=== PATIENT | male | born 1990 | race Caucasian/White ===

== ENCOUNTER 2021-04-06 19:37 | Emergency (ER) | payer OTHER ==
[~2021-04-06] VITALS: Ht 175.3 cm; Wt 82.0 kg
[2021-04-06] MEDS ORDERED: IBUPROFEN 400MG TABLET PO ONE (22:30)
[2021-04-06 22:38] VITALS: BP 135/54
== END 2021-04-06 22:40 | disposition home or self-care (01) ==
LOC: ER 19:37
DX: S09.8XXA Other specified injuries of head, initial encounter (principal); M54.2 Cervicalgia; W22.8XXA Striking against or struck by other objects, initial encounter; Y93.89 Activity, other specified; Y92.89 Other specified places as the place of occurrence of the external cause; Y99.0 Civilian activity done for income or pay
CPT/HCPCS: 99284